=== PATIENT | male | born 1970 | race Caucasian/White ===

== ENCOUNTER 2018-06-03 10:16 | Inpatient (IN) | payer BC ==
[2018-06-03] MEDS ORDERED: Sodium Chloride 0.9% 1000 ML 1,000 ML IV STA ×2 (11:01→11:42)
[2018-06-03] MEDS ORDERED: TORAdol 30 mg Injection IV ONE (11:05)
[2018-06-03] MEDS ORDERED: Sodium Chloride 0.9% 1000 ML 1,000 ML ONE ×2 (11:05→11:46)
[2018-06-03] MEDS ORDERED: PYRIDIUM 200 MG ONE (11:05)
[2018-06-03] MEDS ORDERED: TORAdol 30 mg Injection ONE (11:07)
[2018-06-03] MEDS: PYRIDIUM 200 MG PO SCH ×3 (11:10→20:55)
[2018-06-03 11:15] LABS: Granulocyte Absolute (ANC) 20.26 (1.4-6.9); Hematocrit 45.9 % (42-50); Hemoglobin 16.1 gm/dl (12.5-18.0); Mean Cell Volume 88.4 fl (78-100); Mean Corpuscular Hgb Concent. 35.1 g/dl (32-36); Mean Platelet Volume 9.9 fl (6-9.5); Platelet Count 308 K/mm3 (150-450); Red Blood Count 5.19 M/mm3 (4.1-5.6); White Blood Count 24.1 K/mm3 (4.0-10.5)
--- NOTE | 2018-06-03 11:20 | ERPHSYRPT ---
- History of Present Illness Time Seen by Provider: 06/03/18 10:45 Source: patient Exam Limitations: clinical condition Patient Subjective Stated Complaint: Feels like he is "peeing an elephant" Triage Nursing Assessment: Pt c/o of pain during urination, denies flank or abdomen pain, reports thighs ache and upper arms, no pain with palpatation, tachycardic, states he had a fever yesterday, denies any other medical problems at this time Physician History: PATIENT COMPLAINS OF SEVERE DYSURIA X 2 DAYS ASSOCIATED WITH FREQUENCY, URGENCY OF URINATION. HAS ASSOCIATE FEVER AT HOME, DENIES TESTICLE PAIN, FLANK PAIN, ABDOMINAL PAIN, URETHRAL DISCHARGE OR HEMATURIA. Timing/Duration: day(s) Activites at Onset: none Quality: burning, other (SEVERE BURNING UPON URINATION) Onset Location: urethral Pain Radiation: none Severity of Pain-Max: severe Severity of Pain-Current: severe (ONLY UPON URINATION) Associated Symptoms: fever, dysuria Prior abdominal problems: none Sexual intercourse history: non-contributory Allergies/Adverse Reactions: No Known Drug Allergies Allergy (Verified 06/03/18 10:38) Home Medications: No Reportable Medications [No Reported Medications] 06/03/18 [History] - Past Medical History Pertinent Past Medical History: No - Past Surgical History Past Surgical History: No - Social History Smoking Status: Current some day smoker How long have you smoked: 30 years Exposure to second hand smoke: No Drug Use: none Patient Lives Alone: No - Review of Systems Constitutional: Fever Eyes: No Symptoms Ears, Nose, & Throat: No Symptoms Respiratory: No Symptoms, No Cough, No Dyspnea Cardiac: No Chest Pain, No Edema, No Syncope Abdominal/Gastrointestinal: No Symptoms, No Abdominal Pain, No Nausea, No Vomiting, No Diarrhea Genitourinary Symptoms: Dysuria Musculoskeletal: No Symptoms, No Back Pain, No Neck Pain Skin: No Symptoms, No Rash Neurological: No Dizziness, No Focal Weakness, No Sensory Changes Psychological: No Symptoms Endocrine: No Symptoms All Other Systems: Reviewed and Negative - Nursing Vital Signs Nursing Vital Signs: Initial Vital Signs Temperature 98.1 F 06/03/18 10:25 Pulse Rate 106 H 06/03/18 10:25 Blood Pressure 127/74 06/03/18 10:25 O2 Sat by Pulse Oximetry 98 06/03/18 10:25 Pain Scale Pain Intensity 6 - Physical Exam General Appearance: no apparent distress, alert Eye Exam: PERRL/EOMI Ears, Nose, Throat Exam: pharynx normal, moist mucous membranes Neck Exam: normal inspection, supple Respiratory Exam: normal breath sounds, lungs clear Cardiovascular Exam: regular rate/rhythm, tachycardia, No edema Gastrointestinal/Abdomen Exam: soft, normal bowel sounds (NONTENDER, ), No tenderness Male Genital Exam: normal genitalia (NO TESTICULAR TENDERNESS, NO INGUINAL TENDERNESS), prostate tenderness Back Exam: normal inspection, No CVA tenderness Extremity Exam: normal inspection, normal range of motion, No pedal edema Neurologic Exam: alert, oriented x 3, cooperative, sensation nml, No motor deficits Skin Exam: normal color, warm, dry, No rash SpO2 Interpretation: normal SpO2: 98 Oxygen Delivery: Room Air Ordered Tests: Active Orders 24 hr Category Date Time Status ABDOMEN AND PELVIS W/0 CONTRAS [CT] Stat Exams 06/03/18 11:49 Taken BLOOD CULTURE Stat Lab 06/03/18 10:45 Received BMP Stat Lab 06/03/18 10:45 Completed CBC W DIFF Stat Lab 06/03/18 10:45 Completed CULTURE,URINE Stat Lab 06/03/18 11:04 Received Manual Differential NC Stat Lab 06/03/18 10:45 Completed UA W/RFX UR CULTURE Stat Lab 06/03/18 11:04 Completed Urine Triage Profile Stat Lab 06/03/18 11:04 Completed Wet Prep Stat Lab 06/03/18 11:03 Ordered Medication Summary Generic Name Dose Route Start Last Admin Trade Name Freq PRN Reason Stop Dose Admin Levofloxacin/Dextrose 750 mg in 150 mls @ 100 mls/hr 06/03/18 11:53 06/03/18 12:14 Levofloxacin 750mg/150ml D5w IV 06/03/18 13:22 150 ml/hr STAT STA 150 mls/hr Administration Phenazopyridine HCl 200 mg 06/03/18 13:00 06/03/18 11:10 Pyridium 200 Mg PO 07/03/18 12:59 200 mg QID VALERIA Administration Discontinued Medications Generic Name Dose Route Start Last Admin Trade Name Freq PRN Reason Stop Dose Admin Sodium Chloride 1,000 mls @ 999 mls/hr 06/03/18 11:01 06/03/18 12:14 Sodium Chloride 0.9% 1000 Ml IV 06/03/18 12:01 Infused .Q1H1M STA Infusion Sodium Chloride Confirm 06/03/18 11:05 Sodium Chloride 0.9% 1000 Ml Administered 06/03/18 11:06 Dose 1,000 mls @ ud .ROUTE .STK-MED ONE Sodium Chloride 1,000 mls @ 999 mls/hr 06/03/18 11:42 06/03/18 12:42 Sodium Chloride 0.9% 1000 Ml IV 06/03/18 12:42 Infused .Q1H1M STA Infusion Sodium Chloride Confirm 06/03/18 11:46 Sodium Chloride 0.9% 1000 Ml Administered 06/03/18 11:47 Dose 1,000 mls @ ud .ROUTE .STK-MED ONE Levofloxacin/Dextrose Confirm 06/03/18 11:56 Levofloxacin 750mg/150ml D5w Administered 06/03/18 11:57 Dose 750 mg in 150 mls @ ud IV .STK-MED ONE Ketorolac Tromethamine 30 mg 06/03/18 11:05 06/03/18 11:10 Toradol 30 Mg Injection IV 06/03/18 11:06 30 mg STAT ONE Administration Ketorolac Tromethamine Confirm 06/03/18 11:07 Toradol 30 Mg Injection Administered 06/03/18 11:08 Dose 30 mg .ROUTE .STK-MED ONE Morphine Sulfate 4 mg 06/03/18 11:42 06/03/18 11:50 Morphine Sulfate 4 Mg Inj IV 06/03/18 11:43 4 mg STAT ONE Administration Morphine Sulfate Confirm 06/03/18 11:46 Morphine Sulfate 4 Mg Inj Administered 06/03/18 11:47 Dose 4 mg .ROUTE .STK-MED ONE Ondansetron HCl 4 mg 06/03/18 11:42 06/03/18 11:50 Zofran 4 Mg/2 Ml Vial IV 06/03/18 11:43 4 mg STAT ONE Administration Ondansetron HCl Confirm 06/03/18 11:46 Zofran 4 Mg/2 Ml Vial Administered 06/03/18 11:47 Dose 4 mg .ROUTE .STK-MED ONE Lab/Rad Data: Laboratory Result Diagrams 06/03/18 10:45 06/03/18 10:45 Laboratory Results 06/03/18 06/03/18 06/03/18 Range/Units 11:04 11:04 10:45 WBC (4.0-10.5) K/mm3 RBC (4.1-5.6) M/mm3 Hgb (12.5-18.0) gm/dl Hct (42-50) % MCV (78-100) fl MCH (26-32) pg MCHC (32-36) g/dl RDW (11.5-14.0) % Plt Count (150-450) K/mm3 MPV (6-9.5) fl Absolute Granulocytes (1.4-6.9) Segmented Neutrophils (36.-66.) % Band Neutrophils (0.0-2.0) % Lymphocytes (Manual) (24-44) % Monocytes (Manual) (0.0-12.0) % Platelet Estimate (NORMAL) RBC Morphology Sodium 135 L (137-145) mmol/L Potassium 4.5 (3.5-5.1) mmol/L Chloride 101 (98-107) mmol/L Carbon Dioxide 20 L (22-30) mmol/L Anion Gap 17.6 H (5-15) MEQ/L BUN 11 (9-20) mg/dL Creatinine 0.78 (0.66-1.25) mg/dL Estimated GFR > 60.0 ML/MIN Glucose 104 (74-106) mg/dL Calcium 9.6 (8.4-10.2) mg/dL Urine Color YELLOW (YELLOW) Urine Appearance SLIGHTLY CLOUDY (CLEAR) Urine pH 9.0 (5-6) Ur Specific Nath[place]ie 1.023 (1.005-1.025) Urine Protein 100 (Negative) Urine Ketones MODERATE (NEGATIVE) Urine Blood NEGATIVE (0-5) Jeromy/ul Urine Nitrite NEGATIVE (NEGATIVE) Urine Bilirubin NEGATIVE (NEGATIVE) Urine Urobilinogen 4 (0-1) mg/dL Ur Leukocyte Esterase MODERATE (NEGATIVE) Urine WBC (Auto) >100 (0-5) /HPF Urine RBC (Auto) 26-50 (0-2) /HPF Urine Bacteria (Auto) FEW (NEGATIVE) /HPF Unidentified Crystals 2-5 (NEGATIVE) /HPF Urine Mucus (Auto) SLIGHT (NEGATIVE) /HPF Urine Culture Reflexed YES (NO) Urine Glucose NEGATIVE (NEGATIVE) mg/dL Urine Opiates Level NEGATIVE (NEGATIVE) Ur Methadone NEGATIVE (NEGATIVE) Urine Barbiturates NEGATIVE (NEGATIVE) Ur Phencyclidine (PCP) NEGATIVE (NEGATIVE) Urine Amphetamine NEGATIVE (NEGATIVE) U Benzodiazepine Level NEGATIVE (NEGATIVE) Urine Cocaine NEGATIVE (NEGATIVE) Urine Marijuana (THC) NEGATIVE (NEGATIVE) 06/03/18 Range/Units 10:45 WBC 24.1 H (4.0-10.5) K/mm3 RBC 5.19 (4.1-5.6) M/mm3 Hgb 16.1 (12.5-18.0) gm/dl Hct 45.9 (42-50) % MCV 88.4 (78-100) fl MCH 31.0 (26-32) pg MCHC 35.1 (32-36) g/dl RDW 13.0 (11.5-14.0) % Plt Count 308 (150-450) K/mm3 MPV 9.9 H (6-9.5) fl Absolute Granulocytes 20.26 H (1.4-6.9) Segmented Neutrophils 84 H (36.-66.) % Band Neutrophils 4 H (0.0-2.0) % Lymphocytes (Manual) 8 L (24-44) % Monocytes (Manual) 4 (0.0-12.0) % Platelet Estimate NORMAL (NORMAL) RBC Morphology NORMAL Sodium (137-145) mmol/L Potassium (3.5-5.1) mmol/L Chloride (98-107) mmol/L Carbon Dioxide (22-30) mmol/L Anion Gap (5-15) MEQ/L BUN (9-20) mg/dL Creatinine (0.66-1.25) mg/dL Estimated GFR ML/MIN Glucose (74-106) mg/dL Calcium (8.4-10.2) mg/dL Urine Color (YELLOW) Urine Appearance (CLEAR) Urine pH (5-6) Ur Specific [place]ath[place]ie (1.005-1.025) Urine Protein (Negative) Urine Ketones (NEGATIVE) Urine Blood (0-5) Jeromy/ul Urine Nitrite (NEGATIVE) Urine Bilirubin (NEGATIVE) Urine Urobilinogen (0-1) mg/dL Ur Leukocyte Esterase (NEGATIVE) Urine WBC (Auto) (0-5) /HPF Urine RBC (Auto) (0-2) /HPF Urine Bacteria (Auto) (NEGATIVE) /HPF Unidentified Crystals (NEGATIVE) /HPF Urine Mucus (Auto) (NEGATIVE) /HPF Urine Culture Reflexed (NO) Urine Glucose (NEGATIVE) mg/dL Urine Opiates Level (NEGATIVE) Ur Methadone (NEGATIVE) Urine Barbiturates (NEGATIVE) Ur Phencyclidine (PCP) (NEGATIVE) Urine Amphetamine (NEGATIVE) U Benzodiazepine Level (NEGATIVE) Urine Cocaine (NEGATIVE) Urine Marijuana (THC) (NEGATIVE) - Progress Progress Note: 06/03/18 11:27 IV NORMAL SALINE 1 LITER BOLUS, PRYIDIUM 200MG ORALLY, TORADOL 30MG IV AFTER 2 SETS OF BLOOD CULTURES, LEVAQUIN 500MG IVPB Discussed with DrBaljeet: Magan Will see patient in: hospital (observation) (DISCUSSED WITH DR FERNANDEZ AT 1350 FOR OBSERVATION) - Departure Time of Disposition: 13:00 Departure Disposition: Observation Clinical Impression: ACUTE PROSTATITIS, URINARY TRACT INFECTION Condition: Stable Critical Care Time: No
[2018-06-03 11:24] LABS: Appearance SLIGHTLY CLOUDY (CLEAR); Bilirubin NEGATIVE (NEGATIVE); Blood NEGATIVE Ery/ul (0-5); Glucose NEGATIVE (NEGATIVE); Ketones MODERATE (NEGATIVE); Leukocyte Esterase MODERATE (NEGATIVE); Nitrite NEGATIVE (NEGATIVE); Protein,Urine Dip 100 (Negative); Specific Gravity 1.023 (1.005-1.025); Urobilinogen 4 mg/dL (0-1)
[2018-06-03 11:26] LABS: ANION GAP 17.6 MEQ/L (5-15); BLOOD UREA NITROGEN 11 mg/dL (9-20); CHLORIDE 101 mmol/L (98-107); Calcium 9.6 mg/dL (8.4-10.2); Carbon Dioxide 20 mmol/L (22-30); Creatinine 1 0.78 mg/dL (0.66-1.25); Glucose 104 mg/dL (74-106); Potassium 4.5 mmol/L (3.5-5.1); SODIUM 135 mmol/L (137-145)
[2018-06-03 11:38] LABS: Amphetamine,Urine NEGATIVE (NEGATIVE); Barbiturate,Urine NEGATIVE (NEGATIVE); Benzodiazepine,Urine NEGATIVE (NEGATIVE); Cocaine,Urine NEGATIVE (NEGATIVE); Methadone,Urine NEGATIVE (NEGATIVE); Opiate,Urine NEGATIVE (NEGATIVE); PCP,Urine NEGATIVE (NEGATIVE); THC,Urine NEGATIVE (NEGATIVE)
[2018-06-03] MEDS ORDERED: MORPHINE SULFATE 4 MG INJ IV ONE (11:42)
[2018-06-03] MEDS ORDERED: Zofran 4 MG/2 ML VIAL IV ONE (11:42)
[2018-06-03] MEDS ORDERED: Zofran 4 MG/2 ML VIAL ONE (11:46)
[2018-06-03] MEDS ORDERED: MORPHINE SULFATE 4 MG INJ ONE (11:46)
[2018-06-03] MEDS ORDERED: LEVOFLOXACIN 750MG/150ML D5W 750 MG/150 ML BAG IV STA (11:53)
[2018-06-03] MEDS ORDERED: LEVOFLOXACIN 750MG/150ML D5W 750 MG/150 ML BAG IV ONE (11:56)
[2018-06-03 12:05] LABS: BAND 4 % (0.0-2.0); Lymphocytes 8 % (24-44); Monocyte 4 % (0.0-12.0); Neutrophils 84 % (36.-66.); Total Cells Counted 100
[2018-06-03 12:06] LABS: Platelet Estimate NORMAL (NORMAL)
[2018-06-03] MEDS ORDERED: Zofran 4 MG/2 ML VIAL IV PRN (12:57)
[2018-06-03] MEDS ORDERED: MORPHINE SULFATE 4 MG INJ IV PRN (12:57)
[2018-06-03 13:17] LABS: Bacteria Few; Clue Cells None Seen; Trichomonas None Seen
[2018-06-03 13:18] LABS: Red Blood Cells None Seen; White Blood Cells None Seen
[2018-06-03] MEDS: Sodium Chloride 0.9% 1000 ML 1,000 ML IV SCH ×2 (14:05→23:58)
--- NOTE | 2018-06-03 15:45 | XRAY ---
Indication: Painful urination. Little urine output. Multiple contiguous axial images obtained through the abdomen and pelvis without contrast as ordered. Comparison: None Lung bases are clear. Heart is not enlarged. Noncontrasted stomach and bowel loops appear nonobstructed. Several small bowel loops are mildly fluid distended with some fluid leveling, ileus versus enteritis. Normal appendix. Mild scattered descending and sigmoid diverticulosis without diverticulitis. No free fluid/air. Remaining liver, gallbladder, pancreas, spleen, adrenal glands, kidneys, ureters, and bladder appear unremarkable for noncontrast exam. Minimal aortic calcifications without AAA. Osseous structures intact with mild multilevel degenerative changes. No ventral or inguinal hernia. Impression: 1. Mild fluid distended small bowel loops with fluid leveling. Rule out ileus versus enteritis. 2. Colonic diverticulosis without diverticulitis. 3. Remaining CT abdomen/pelvis without contrast exam is negative. Comment: Preliminary interpretation was made by [facility]. No discrepancy. CTDI 16.88
[2018-06-03] MEDS: TYLENOL 325 MG PO PRN ×2 (15:46→23:04)
[2018-06-03] MEDS ORDERED: DILAUDID 2 MG INJECTION ONE ×2 (16:45→20:51)
[2018-06-03] MEDS: Hydromorphone 1 mg/ml Ampule IV PRN ×2 (16:48→20:56)
[2018-06-04] MEDS ORDERED: BENADRYL 25 MG CAPSULE PO ONE (01:17)
--- NOTE | 2018-06-04 08:17 | PCM.HP ---
History of Present Illness - Chief Complaint Chief Complaint: Acute Prostatitis, Urinary Tract Infection History of Present Illness: is a 48 year old male who presented to the ER last night with complaints of dysuria and fever. He developed penile pain with urination that has worsened over the last 2 days, he had fever the day before arrival. no nausea, vomiting, diarrhea or constipation. - Review of Systems Constitutional: Fever Respiratory: No Cough, No Short Of Breath Cardiac: No Chest Pain, No Edema, No Syncope Abdominal/Gastrointestinal: No Nausea, No Vomiting, No Diarrhea Genitourinary Symptoms: Dysuria Skin: No Rash Neurological: No Dizziness, No Focal Weakness, No Sensory Changes All Other Systems: Reviewed and Negative Medications & Allergies Home Medications: Home Medication List No Reportable Medications [No Reported Medications] 06/03/18 [History Confirmed 06/03/18] Allergies/Adverse Reactions: Allergies Allergy/AdvReac Type Severity Reaction Status Date / Time No Known Drug Allergies Allergy Verified 06/03/18 10:38 - Past Medical History Past Medical History: No Neurological History: No Pertinent History ENT History: No Pertinent History Cardiac History: No Pertinent History Respiratory History: No Pertinent History Endocrine Medical History: No Pertinent History Musculoskelatal History: No Pertinent History GI Medical History: No Pertinent History History: No Pertinent History Pyscho-Social History: No Pertinent History Male Reproductive Disorders: No Pertinent History - Past Surgical History Past Surgical History: No Neuro Surgical History: No Pertinent History Cardiac History: No Pertinent History Respiratory Surgery: No Pertinent History GI Surgical History: No Pertinent History Genitourinary Surgical Hx: No Pertinent History Musculskeletal Surgical Hx: No Pertinent History Male Surgical History: No Pertinent History - Social History Smoking Status: Current every day smoker How long have you smoked: 30 years Exposure to second hand smoke: No Alcohol: Occasionally Drug Use: none - Physical Exam Vital Signs: Vital Signs - 24 hr Temp Pulse Resp BP Pulse Ox 06/04/18 07:50 97.8 F 77 16 115/69 92 L 06/04/18 04:18 98.4 F 70 18 114/59 96 06/04/18 04:00 97 06/03/18 23:36 98 06/03/18 23:32 99.8 F 100 H 16 129/69 98 06/03/18 19:45 98.7 F 89 18 112/66 96 06/03/18 16:55 99.3 F 102 H 17 141/84 97 06/03/18 14:24 98.9 F 89 18 127/72 98 06/03/18 13:11 98.1 F 94 H 110/70 95 06/03/18 13:02 98 06/03/18 12:49 98.1 F 90 18 136/80 94 L 06/03/18 11:28 98.0 F 98 H 16 140/76 98 06/03/18 10:25 98.1 F 106 H 127/74 98 General Appearance: no apparent distress, alert Eye Exam: PERRL/EOMI, eyes nml inspection Ears, Nose, Throat Exam: normal ENT inspection, TMs normal, pharynx normal, moist mucous membranes Respiratory Exam: normal breath sounds, lungs clear, No respiratory distress Cardiovascular Exam: regular rate/rhythm, normal heart sounds, normal peripheral pulses Gastrointestinal/Abdomen Exam: soft, normal bowel sounds, No tenderness, No mass Extremity Exam: normal inspection, normal range of motion, pelvis stable Results - Labs Lab/Micro Results: Lab Results-Last 24 Hours 06/03/18 06/03/18 06/03/18 Range/Units 10:45 10:45 11:04 WBC 24.1 H (4.0-10.5) K/mm3 RBC 5.19 (4.1-5.6) M/mm3 Hgb 16.1 (12.5-18.0) gm/dl Hct 45.9 (42-50) % MCV 88.4 (78-100) fl MCH 31.0 (26-32) pg MCHC 35.1 (32-36) g/dl RDW 13.0 (11.5-14.0) % Plt Count 308 (150-450) K/mm3 MPV 9.9 H (6-9.5) fl Absolute Granulocytes 20.26 H (1.4-6.9) Segmented Neutrophils 84 H (36.-66.) % Band Neutrophils 4 H (0.0-2.0) % Lymphocytes (Manual) 8 L (24-44) % Monocytes (Manual) 4 (0.0-12.0) % Platelet Estimate NORMAL (NORMAL) RBC Morphology NORMAL Sodium 135 L (137-145) mmol/L Potassium 4.5 (3.5-5.1) mmol/L Chloride 101 (98-107) mmol/L Carbon Dioxide 20 L (22-30) mmol/L Anion Gap 17.6 H (5-15) MEQ/L BUN 11 (9-20) mg/dL Creatinine 0.78 (0.66-1.25) mg/dL Estimated GFR > 60.0 ML/MIN Glucose 104 (74-106) mg/dL Calcium 9.6 (8.4-10.2) mg/dL Urine Color YELLOW (YELLOW) Urine Appearance SLIGHTLY CLOUDY (CLEAR) Urine pH 9.0 (5-6) Ur Specific [place] 1.023 (1.005-1.025) Urine Protein 100 (Negative) Urine Ketones MODERATE (NEGATIVE) Urine Blood NEGATIVE (0-5) Jeromy/ul Urine Nitrite NEGATIVE (NEGATIVE) Urine Bilirubin NEGATIVE (NEGATIVE) Urine Urobilinogen 4 (0-1) mg/dL Ur Leukocyte Esterase MODERATE (NEGATIVE) Urine WBC (Auto) >100 (0-5) /HPF Urine RBC (Auto) 26-50 (0-2) /HPF Urine Bacteria (Auto) FEW (NEGATIVE) /HPF Unidentified Crystals 2-5 (NEGATIVE) /HPF Urine Mucus (Auto) SLIGHT (NEGATIVE) /HPF Urine Culture Reflexed YES (NO) Urine Glucose NEGATIVE (NEGATIVE) mg/dL WBC (Wet Prep) RBC (Wet Prep) Epi Cells (Wet Prep) Bacteria (Wet Prep) Clue Cells (Wet Prep) Trichomonas (Wet Prep) Budding Yeast (Wet Prp) Urine Opiates Level (NEGATIVE) Ur Methadone (NEGATIVE) Urine Barbiturates (NEGATIVE) Ur Phencyclidine (PCP) (NEGATIVE) Urine Amphetamine (NEGATIVE) U Benzodiazepine Level (NEGATIVE) Urine Cocaine (NEGATIVE) Urine Marijuana (THC) (NEGATIVE) Chlamydia DNA (PCR) N.gonorrhoeae DNA Probe 06/03/18 06/03/18 06/03/18 Range/Units 11:04 12:10 13:00 WBC (4.0-10.5) K/mm3 RBC (4.1-5.6) M/mm3 Hgb (12.5-18.0) gm/dl Hct (42-50) % MCV (78-100) fl MCH (26-32) pg MCHC (32-36) g/dl RDW (11.5-14.0) % Plt Count (150-450) K/mm3 MPV (6-9.5) fl Absolute Granulocytes (1.4-6.9) Segmented Neutrophils (36.-66.) % Band Neutrophils (0.0-2.0) % Lymphocytes (Manual) (24-44) % Monocytes (Manual) (0.0-12.0) % Platelet Estimate (NORMAL) RBC Morphology Sodium (137-145) mmol/L Potassium (3.5-5.1) mmol/L Chloride (98-107) mmol/L Carbon Dioxide (22-30) mmol/L Anion Gap (5-15) MEQ/L BUN (9-20) mg/dL Creatinine (0.66-1.25) mg/dL Estimated GFR ML/MIN Glucose (74-106) mg/dL Calcium (8.4-10.2) mg/dL Urine Color (YELLOW) Urine Appearance (CLEAR) Urine pH (5-6) Ur Specific [place] (1.005-1.025) Urine Protein (Negative) Urine Ketones (NEGATIVE) Urine Blood (0-5) Jeromy/ul Urine Nitrite (NEGATIVE) Urine Bilirubin (NEGATIVE) Urine Urobilinogen (0-1) mg/dL Ur Leukocyte Esterase (NEGATIVE) Urine WBC (Auto) (0-5) /HPF Urine RBC (Auto) (0-2) /HPF Urine Bacteria (Auto) (NEGATIVE) /HPF Unidentified Crystals (NEGATIVE) /HPF Urine Mucus (Auto) (NEGATIVE) /HPF Urine Culture Reflexed (NO) Urine Glucose (NEGATIVE) mg/dL WBC (Wet Prep) None Seen RBC (Wet Prep) None Seen Epi Cells (Wet Prep) Rare Bacteria (Wet Prep) Few Clue Cells (Wet Prep) None Seen Trichomonas (Wet Prep) None Seen Budding Yeast (Wet Prp) None Seen Urine Opiates Level NEGATIVE (NEGATIVE) Ur Methadone NEGATIVE (NEGATIVE) Urine Barbiturates NEGATIVE (NEGATIVE) Ur Phencyclidine (PCP) NEGATIVE (NEGATIVE) Urine Amphetamine NEGATIVE (NEGATIVE) U Benzodiazepine Level NEGATIVE (NEGATIVE) Urine Cocaine NEGATIVE (NEGATIVE) Urine Marijuana (THC) NEGATIVE (NEGATIVE) Chlamydia DNA (PCR) NEGATIVE N.gonorrhoeae DNA Probe NEGATIVE Microbiology 06/03/18 11:25 Blood Culture Gram Stain - Final Blood - Radiology Impressions Radiology Exams & Impressions: Radiology Procedures Category Date Time Status ABDOMEN AND PELVIS W/0 CONTRAS [CT] Stat Exams 06/03/18 11:49 Completed Assessment/Plan (1) Bacteremia Current Visit: Yes Status: Acute Assessment & Plan: hemodynamically stable and afebrile thus far, on levaquin at this time. gnr Code(s): R78.81 - BACTEREMIA (2) Acute pyelonephritis Current Visit: Yes Status: Acute Code(s): N10 - ACUTE PYELONEPHRITIS (3) Prostatitis, acute Current Visit: Yes Status: Acute Code(s): N41.0 - ACUTE PROSTATITIS
[2018-06-04] MEDS: Sodium Chloride 0.9% 1000 ML 1,000 ML IV SCH ×2 (10:04→22:48)
[2018-06-04] MEDS: LEVOFLOXACIN 750MG/150ML D5W 750 MG/150 ML BAG IV SCH (10:05)
[2018-06-04] MEDS: PYRIDIUM 200 MG PO SCH ×4 (10:05→21:21)
[2018-06-04] MEDS: DILAUDID 1 MG/1ML PCA IV PRN ×2 (12:00→18:05)
[2018-06-04] MEDS: BENADRYL 25 MG CAPSULE PO PRN ×2 (16:51→21:21)
[2018-06-05 05:41] LABS: BASOPHIL % 0.3 % (0.0-0.4); Basophil (Absolute #) 0.03 (0-0.4); Eosinophil % 2.5 % (0.00-5.0); Eosinophil (Absolute #) 0.27 (0-0.5); Granulocyte Absolute (ANC) 7.59 (1.4-6.9); Granulocytes % 70.3 % (36.0-66.0); Hematocrit 38.8 % (42-50); Hemoglobin 12.9 gm/dl (12.5-18.0); Lymphocyte (Absolute #) 1.55 (1.0-4.6); Lymphocytes % 14.4 % (24.0-44.0); Mean Cell Volume 91.7 fl (78-100); Mean Corpuscular Hemoglobin 30.5 pg (26-32); Mean Corpuscular Hgb Concent. 33.2 g/dl (32-36); Mean Platelet Volume 9.2 fl (6-9.5); Monocyte (Absolute #) 1.35 (0.0-1.3); Monocytes % 12.5 % (0.0-12.0); Platelet Count 287 K/mm3 (150-450); Red Blood Count 4.23 M/mm3 (4.1-5.6); Red Cell Distribution Width 13.3 % (11.5-14.0); White Blood Count 10.8 K/mm3 (4.0-10.5)
[2018-06-05 06:15] LABS: ALBUMIN 3.4 g/dL (3.5-5.0); ALKALINE PHOSPHATASE 206 U/L (38-126); ANION GAP 10.1 MEQ/L (5-15); BLOOD UREA NITROGEN 8 mg/dL (9-20); CHLORIDE 102 mmol/L (98-107); Calcium 8.5 mg/dL (8.4-10.2); Carbon Dioxide 29 mmol/L (22-30); Creatinine 1 0.71 mg/dL (0.66-1.25); Glucose 91 mg/dL (74-106); Potassium 3.7 mmol/L (3.5-5.1); SGOT/AST 50 U/L (17-59); SGPT/ALT 46 U/L (0-50); SODIUM 137 mmol/L (137-145); Total Protein 6.6 g/dL (6.3-8.2)
[2018-06-05] MEDS: Sodium Chloride 0.9% 1000 ML 1,000 ML IV SCH ×2 (08:45→19:31)
--- NOTE | 2018-06-05 09:21 | PCM.NOTE ---
Date and Time: 06/05/18918 Subjective Assessment: Pt is urinating better than before, but still has 9/10 dysuria. Azucena po well. - Review of Systems Constitutional: No Fever (Tmax 99.3) Genitourinary Symptoms: Dysuria Objective Exam General Appearance: no apparent distress, alert (standing up) Skin Exam: normal color, warm, dry, No rash Neck Exam: normal inspection Respiratory Exam: normal breath sounds, lungs clear, No crackles/rales, No rhonchi, No wheezing Cardiovascular Exam: regular rate/rhythm, normal heart sounds, No murmur Gastrointestinal/Abdomen Exam: soft, normal bowel sounds, No tenderness, No distention Extremity Exam: normal inspection Back Exam: normal inspection, No CVA tenderness, No rash OBJECTIVE DATA Vital Signs: Vital Signs - 24 hr Temp Pulse Resp BP Pulse Ox 06/05/18 07:58 96 06/05/18 07:22 97.7 F 73 20 112/56 96 06/05/18 04:00 98.9 F 70 16 101/56 94 L 06/05/18 00:00 99.3 F 85 18 118/61 94 L 06/04/18 20:00 98.4 F 72 16 112/60 95 06/04/18 19:48 95 06/04/18 18:05 94 L 06/04/18 16:00 98.5 F 81 18 120/73 94 L 06/04/18 12:00 96 06/04/18 11:49 97.9 F 71 17 106/76 96 Pain Assessment - Last Documented Pain Intensity 8 Pain Scale Used 0-10 Pain Scale Intake and Output: Intake & Output 06/02/18 06/03/18 06/04/18 06/05/18 11:59 11:59 11:59 11:59 Intake Total 2883 1369 Output Total 1655 3725 Balance 1228 -2356 Weight 85.275 kg 83.5 kg Lab Results: Lab Results-Last 24 Hours 06/05/18 06/05/18 Range/Units 05:33 05:33 WBC 10.8 H (4.0-10.5) K/mm3 RBC 4.23 (4.1-5.6) M/mm3 Hgb 12.9 (12.5-18.0) gm/dl Hct 38.8 L (42-50) % MCV 91.7 (78-100) fl MCH 30.5 (26-32) pg MCHC 33.2 (32-36) g/dl RDW 13.3 (11.5-14.0) % Plt Count 287 (150-450) K/mm3 MPV 9.2 (6-9.5) fl Gran % 70.3 H (36.0-66.0) % Eos # (Auto) 0.27 (0-0.5) Absolute Lymphs (auto) 1.55 (1.0-4.6) Absolute Monos (auto) 1.35 H (0.0-1.3) Lymphocytes % 14.4 L (24.0-44.0) % Monocytes % 12.5 H (0.0-12.0) % Eosinophils % 2.5 (0.00-5.0) % Basophils % 0.3 (0.0-0.4) % Absolute Granulocytes 7.59 H (1.4-6.9) Basophils # 0.03 (0-0.4) Sodium 137 (137-145) mmol/L Potassium 3.7 (3.5-5.1) mmol/L Chloride 102 (98-107) mmol/L Carbon Dioxide 29 (22-30) mmol/L Anion Gap 10.1 (5-15) MEQ/L BUN 8 L (9-20) mg/dL Creatinine 0.71 (0.66-1.25) mg/dL Estimated GFR > 60.0 ML/MIN Glucose 91 (74-106) mg/dL Calcium 8.5 (8.4-10.2) mg/dL Total Bilirubin 0.40 (0.2-1.3) mg/dL AST 50 (17-59) U/L ALT 46 (0-50) U/L Alkaline Phosphatase 206 H (38-126) U/L Serum Total Protein 6.6 (6.3-8.2) g/dL Albumin 3.4 L (3.5-5.0) g/dL Radiology Exams: Radiology Procedures Category Date Time Status ABDOMEN AND PELVIS W/0 CONTRAS [CT] Stat Exams 06/03/18 11:49 Completed Assessment/Plan (1) Acute pyelonephritis Current Visit: Yes Status: Acute Onset Date: ~06/03/18 Assessment & Plan: Culture result pos for E. coli, susceptible to levaquin. Pt's WBC down today from 24.1 to 10.8. He is still symptomatic; I advised he should stay at least another day (may need 2 days) on the IV levaquin. Pt agrees. Code(s): N10 - ACUTE PYELONEPHRITIS (2) Bacteremia Current Visit: Yes Status: Acute Onset Date: ~06/03/18 Code(s): R78.81 - BACTEREMIA (3) Elevated white blood cell count Current Visit: Yes Status: Acute Onset Date: ~06/03/18 Code(s): D72.829 - ELEVATED WHITE BLOOD CELL COUNT, UNSPECIFIED (4) Prostatitis, acute Current Visit: Yes Status: Acute Onset Date: ~06/03/18 Code(s): N41.0 - ACUTE PROSTATITIS
[2018-06-05] MEDS: PYRIDIUM 200 MG PO SCH ×4 (09:57→22:25)
[2018-06-05] MEDS: LEVOFLOXACIN 750MG/150ML D5W 750 MG/150 ML BAG IV SCH (09:58)
[2018-06-05] MEDS: BENADRYL 25 MG CAPSULE PO PRN (14:20)
[2018-06-06] MEDS: BENADRYL 25 MG CAPSULE PO PRN (01:14)
[2018-06-06] MEDS: Sodium Chloride 0.9% 1000 ML 1,000 ML IV SCH (04:08)
[2018-06-06 07:29] VITALS: O2SAT 94
--- NOTE | 2018-06-06 08:39 | PCM.DS ---
Discharge Summary Date of Admission: 06/04/18 09:35 Admitting Physician: LISBET FERNANDEZ Primary Care Provider: NO FAMILY DOCTOR Allergies Allergies No Known Drug Allergies Allergy (Verified 06/03/18 10:38) Hospital Summary - Hospital Course Hospital Course: patient was admitted with severe flank pain and dysuria, fever and feeling poorly. found to have e coli in urine and blood cultures - Vitals & Intake/Output Vital Signs: Vital Signs Temperature 98.4 F 06/06/18 07:27 Pulse Rate 78 06/06/18 07:27 Respiratory Rate 18 06/06/18 07:27 Blood Pressure 121/73 06/06/18 07:27 O2 Sat by Pulse Oximetry 94 L 06/06/18 07:27 Intake & Output: Intake & Output 06/03/18 06/04/18 06/05/18 06/06/18 11:59 11:59 11:59 11:59 Intake Total 2883 1489 3942 Output Total 1655 4575 2900 Balance 1228 -3086 1042 Weight 85.275 kg 83.5 kg - Lab Result Diagrams: 06/05/18 05:33 06/05/18 05:33 Micro Results-Entire Visit: Microbiology 06/03/18 11:25 Blood Culture Gram Stain - Final Blood Blood Culture - Final Escherichia Coli 06/03/18 10:45 Blood Culture - Preliminary Blood NO GROWTH TO DATE 06/03/18 11:04 Urine Culture - Final Urine, Void Escherichia Coli - Procedures and Test Procedures and Tests throughout Hospitalization: Therapy Orders & Screens 06/03/18 14:48 Smoking Cessation Education ONCE Comment: Diagnosis: Acute Prostatitis, Urinary Tract Infection Smoking Status: Current every day smoker How long have you smoked: 30 years Have you smoked in the past 12 months: Yes Do you dip or chew tobacco: Yes Discharge Exam General Appearance: no apparent distress, alert Skin Exam: normal color, warm, dry Eye Exam: PERRL, EOMI, eyes nml inspection Respiratory Exam: normal breath sounds, lungs clear, No respiratory distress Cardiovascular Exam: regular rate/rhythm, normal heart sounds Gastrointestinal/Abdomen Exam: soft, No tenderness, No mass Extremity Exam: normal inspection, normal range of motion Final Diagnosis/Problem List - Final Discharge Diagnosis/Problem (1) Bacteremia Current Visit: Yes Status: Acute Onset Date: ~06/03/18 (2) Acute pyelonephritis Current Visit: Yes Status: Acute Onset Date: ~06/03/18 (3) Prostatitis, acute Current Visit: Yes Status: Acute Onset Date: ~06/03/18 - Discharge Disposition: Home, Self-Care Condition: Stable Prescriptions: New Levofloxacin [Levofloxacin 500 MG Tablet] 500 mg PO DAILY #10 tablet Hydrocodone Bit/Acetaminophen [[place] 5-325 Tablet] 1 each PO Q4-6HPRN PRN # 28 tablet MDD 4 PRN Reason: Pain Follow up with: LISBET FERNANDEZ MD [ACTIVE STAFF] - 1 month
[2018-06-06] MEDS: LEVOFLOXACIN 750MG/150ML D5W 750 MG/150 ML BAG IV SCH (09:58)
[2018-06-06] MEDS: PYRIDIUM 200 MG PO SCH (09:58)
[2018-06-06 12:43] VITALS: BP 125/73; PULSE 75
== END 2018-06-06 12:40 | disposition home or self-care (01) | DRG 872 ==
LOC: ED 10:16 → MED SURG 13:52 → OBSVTOIN 06-04 09:35
PROVIDERS: ADMIT Family Medicine; ATTEND Family Medicine
DX: R78.81 Bacteremia (principal); N10 Acute pyelonephritis; N41.0 Acute prostatitis; B96.20 Unspecified Escherichia coli [E. coli] as the cause of diseases classified elsewhere; D72.829 Elevated white blood cell count, unspecified
CPT/HCPCS: 36415; 74176; 80048; 80053; 80307; 81001; 85025; 87040; 87077; 87086; 87186; 87210; 87490; 87590; 96360; 96361; 96374; 96375; 99285; G0378; J1170; J1885; J1956; J2270; J2405; A9270-GY

== ENCOUNTER 2024-08-04 13:32 | Emergency (ER) | payer BC ==
--- NOTE | 2024-08-04 14:28 | ERPHSYRPT ---
- History of Present Illness Time Seen by Provider: 08/04/24 14:28 Source: patient Exam Limitations: no limitations Physician History: The patient, with COPD, presents with worsening headache, cough, and body aches. Since August 01, 2024, they have experienced worsening headache, cough, and body aches. The cough is severe enough to cause back pain and is associated with back and leg pain. Additional symptoms include cold chills, leg and arm aches, diarrhea, and dry vomiting. No trouble breathing or productive cough. They have checked for fever over the past two weeks but do not specify the results. They have been using Tylenol and ibuprofen for discomfort. They mention taking a cholesterol medication, possibly atorvastatin or Lipitor, but are unsure of the exact name. They also take vitamin D3 due to a previously identified deficiency. They smoke but have not smoked since becoming ill. No chest pain, belly pain, or swelling. Timing/Duration: day(s) (3) Cough Quality/Degree: severe, productive cough Possible Cause: no prior episodes Modifying Factors: Improves With: nothing. Worsens With: coughing, deep breath, exertion Associated Symptoms: fever, chills, chest pain/soreness, cough, muscle aches, shortness of breath Allergies/Adverse Reactions: No Known Drug Allergies Allergy (Verified 08/04/24 14:38) Home Medications: Bupropion HCl 150 mg Sr [Wellbutrin SR 150 MG] 150 mg PO DAILY 08/04/24 [History] Ezetimibe 10 mg [Zetia 10 MG] 10 mg PO DAILY 08/04/24 [History] - Review of Systems All Other Systems: Reviewed and Negative - Past Medical History Pertinent Past Medical History: No Neurological History: No Pertinent History ENT History: No Pertinent History Cardiac History: No Pertinent History Respiratory History: No Pertinent History Endocrine Medical History: No Pertinent History Musculoskeletal History: No Pertinent History GI Medical History: No Pertinent History History: No Pertinent History Psycho-Social History: No Pertinent History Male Reproductive Disorders: No Pertinent History - Past Surgical History Past Surgical History: No Neuro Surgical History: No Pertinent History Cardiac: No Pertinent History Respiratory: No Pertinent History Gastrointestinal: No Pertinent History Genitourinary: No Pertinent History Musculoskeletal: No Pertinent History Male Surgical History: No Pertinent History - Social History Smoking Status: Current every day smoker How long have you smoked: 30 years Exposure to second hand smoke: No Drug Use: none Patient Lives Alone: No - Nursing Vital Signs Nursing Vital Signs: Initial Vital Signs Temperature 99.8 F 08/04/24 14:20 Pulse Rate 109 H 08/04/24 14:20 Respiratory Rate 19 08/04/24 14:20 O2 Sat by Pulse Oximetry 97 08/04/24 14:20 Pain Scale Pain Intensity 0 - Physical Exam SpO2 Interpretation: normal O2 Delivery: Room Air Comments: General: No distress. afebrile. Awake and conversant. Eyes: Normal conjunctiva, anicteric. Round symmetric pupils. ENT: Normal external ear, no tragal TTP, no mastoid TTP, Ear canal clear, Tympanic membranes pearly najera and + light reflex, no sinus tenderness, mild pharyngeal erythema, - exudates. Neck: Neck is supple. + anterior lymphadenopathy. CV: Regular rate, Regular rhythm, no murmur. No peripheral edema Respiratory: Respirations are non-labored. + ronchi. Abdomen: Soft, + BS, no TTP, no CVA TTP Skin: Warm. No rashes. - Course Nursing assessment & vital signs reviewed: Yes - Radiology Exams Chest X-ray Interpretation: Interpreted by me, Pneumonia (bilateral ground glass) Ordered Tests: Active Orders 24 hr Category Date Time Status CHEST 1 VIEW (PORTABLE) Stat Exams 08/04/24 14:22 Completed CBC W DIFF Stat Lab 08/04/24 15:10 Completed CMP Stat Lab 08/04/24 15:10 Completed Respiratory Therapy Assessment DAILY RT 08/04/24 14:59 Completed Medication Summary Discontinued Medications Generic Name Dose Route Start Last Admin Trade Name Kenneth PRN Reason Stop Dose Admin Albuterol/Ipratropium 3 ml 08/04/24 14:26 08/04/24 14:56 Ipratropium/Albuterol Sulfate 3 Ml Ampul.Neb IH 08/04/24 14:27 3 ml STAT ONE Administration Albuterol/Ipratropium Confirm 08/04/24 14:35 Ipratropium/Albuterol Sulfate 3 Ml Ampul.Neb Administered 08/04/24 14:36 Dose 3 ml IH .STK-MED ONE Azithromycin 500 mg 08/05/24 15:19 08/04/24 15:27 Azithromycin 250 Mg Tablet PO 08/05/24 15:20 500 mg STAT ONE Administration Azithromycin Confirm 08/04/24 15:26 Azithromycin 250 Mg Tablet Administered 08/04/24 15:27 Dose 500 mg .ROUTE .STK-MED ONE Sodium Chloride 1,000 mls @ 999 mls/hr 08/04/24 15:18 08/04/24 15:27 Sodium Chloride 0.9% 1000 Ml IV 08/04/24 16:18 999 mls/hr .Q1H1M STA Administration Sodium Chloride Confirm 08/04/24 15:26 Sodium Chloride 0.9% 1000 Ml Administered 08/04/24 15:27 Dose 1,000 mls @ ud .ROUTE .STK-MED ONE Ondansetron HCl 4 mg 08/04/24 14:36 08/04/24 14:37 Zofran 4 Mg/Udtablet Orally Disintegrating PO 09/03/24 14:35 4 mg Q4H PRN PRN Administration NAUSEA/VOMITING Ondansetron HCl Confirm 08/04/24 14:37 Zofran 4 Mg/Udtablet Orally Disintegrating Administered 08/04/24 14:38 Dose 4 mg .ROUTE .STK-MED ONE Potassium Chloride 40 meq 08/04/24 15:43 08/04/24 15:52 Potassium Chloride Tab 10 Meq Tab PO 08/04/24 15:44 40 meq STAT ONE Administration Potassium Chloride Confirm 08/04/24 15:51 Potassium Chloride Tab 10 Meq Tab Administered 08/04/24 15:52 Dose 40 meq .ROUTE .STK-MED ONE Prednisone 60 mg 08/04/24 14:26 08/04/24 14:35 Prednisone 20 Mg Tablet PO 08/04/24 14:27 60 mg STAT ONE Administration Prednisone Confirm 08/04/24 14:34 Prednisone 20 Mg Tablet Administered 08/04/24 14:35 Dose 60 mg .ROUTE .STK-MED ONE Lab/Rad Data: Laboratory Result Diagrams 08/04/24 15:10 08/04/24 15:10 Laboratory Results 08/04/24 08/04/24 08/04/24 Range/Units 15:10 15:10 14:30 WBC 16.0 H (4.23-9.07) x10^3/uL RBC 5.71 (4.63-6.08) x10^6/uL Hgb 17.8 H (13.7-17.5) g/dL Hct 48.2 (40.1-51.0) % MCV 84.4 (79.0-92.2) fL MCH 31.2 (25.7-32.2) pg MCHC 36.9 H (32.3-36.5) g/dL RDW 12.8 (11.6-14.4) % Plt Count 238 (163-337) x10^3/uL MPV 9.6 (9.4-12.4) fL Gran % 69.8 H (34.0-67.9) % Immature Gran % (Auto) 0.4 (0.001-0.429) % Nucleat RBC Rel Count 0.0 (0.00-0.2) % Eos # (Auto) 0 L (0.04-0.54) x10^3/uL Immature Gran # (Auto) 0.06 H (0.001-0.031) x10^3u/L Absolute Lymphs (auto) 2.09 (1.32-3.57) x10^3/uL Absolute Monos (auto) 2.62 H (0.30-0.82) x10^3/uL Absolute Nucleated RBC 0.00 (0.00-0.012) x10^3u/L Lymphocytes % 13.1 L (21.8-53.1) % Monocytes % 16.4 H (5.3-12.2) % Eosinophils % 0.0 L (0.8-7.0) % Basophils % 0.3 (0.2-1.2) % Absolute Granulocytes 11.19 H (1.78-5.38) x10^3/uL Basophils # 0.04 (0.01-0.08) x10^3/uL Sodium 134 L (135-145) mmol/L Potassium 3.1 L (3.5-5.1) mmol/L Chloride 102 (98-107) mmol/L Carbon Dioxide 18 L (22-30) mmol/L Anion Gap 15.9 H (5-15) MEQ/L BUN 15 (9-20) mg/dL Creatinine 0.96 (0.66-1.25) mg/dL Estimated GFR 94.5 ML/MIN Glucose 106 (74-106) mg/dL Calcium 9.0 (8.4-10.2) mg/dL Total Bilirubin 0.40 (0.2-1.3) mg/dL AST 40 (17-59) U/L ALT 27 (0-50) U/L Alkaline Phosphatase 80 (38-126) U/L Serum Total Protein 7.8 (6.3-8.2) g/dL Albumin 4.3 (3.5-5.0) g/dL Influenza Type A Ag POSITIVE A (NEGATIVE) Influenza Type B Ag NEGATIVE (NEGATIVE) RSV (PCR) NEGATIVE (NEGATIVE) SARS-CoV-2 (PCR) NEGATIVE (NEGATIVE) Slides for Path Review YES - Progress Progress: improved Air Movement: good Progress Note: -Overall sick but nontoxic. Presented with shortness of breath and cough. Coarse breath sounds present bilaterally. Initial chest XRay concerning for atypical pneumonia. No respiratory distress. Labs were overall unremarkable. No high risk comorbidities or features. CURB-65 and PSI low risk. Patient states they feel better after meds. Other etiologies for dyspnea such as PE, ACS, CHF, Dissection, Asthma, COPD were considered but based on exam and findings above, I think it is most likely due to uncomplicated pneumonia. Patient also found to be Flu A positive, but outside Tamiflu window. Antibiotics and steroids started here. Stable on RA. Discussed findings at length with patient. Also discussed that there is always a possibility that they may get worse regardless of our treatment decisions. They understood and stated they would like to go home with outpatient treatment and prompt PCP followup within the next 48 hours. Return precautions were extensively discussed and they understand to return for any worsening symptoms or failure to improve. Blood Culture(s) Obtained: No Antibiotics given: Yes Counseled pt/family regarding: lab results, diagnosis, need for follow-up, rad results Medical Desision Making - Diagnostic Testing Diagnostic test were ordered, analyzed, and reviewed by me: Yes Radiological Interpretation: Interpreted by me - Risk of complications The pt has a mod risk of morbidity or mortality based on: Need for prescription drug management - Departure Departure Disposition: Home Clinical Impression: Influenza A, Atypical pneumonia, Nausea and vomiting Condition: Good Critical Care Time: No Referrals: FIDEL CORTÉS MD [Primary Care Provider] - Follow up/PCP as directed Instructions: Flu, Adult ED Prescriptions: Azithromycin 250 mg PO DAILY 4 Days #4 tablet predniSONE [Prednisone] 50 mg PO DAILY #4 tablet
[2024-08-04] MEDS ORDERED: DELTASONE 20 MG ONE (14:34)
[2024-08-04] MEDS: DELTASONE 20 MG PO ONE (14:35)
[2024-08-04] MEDS ORDERED: DUONEB 0.5-3 MG/3 ml Neb IH ONE (14:35)
[2024-08-04] MEDS: ZOFRAN ODT 4 MG PO PRN (14:37)
[2024-08-04] MEDS ORDERED: ZOFRAN ODT 4 MG ONE (14:37)
[2024-08-04] MEDS: DUONEB 0.5-3 MG/3 ml Neb IH ONE (14:56)
[2024-08-04 15:14] VITALS: O2SAT 98
[2024-08-04 15:19] LABS: INFLUENZA B NEGATIVE (NEGATIVE); RESPIRATORY SYNCTIAL VIRUS NEGATIVE (NEGATIVE); SARS-CoV-2 Xpert Express NEGATIVE (NEGATIVE)
[2024-08-04 15:24] LABS: INFLUENZA A POSITIVE (NEGATIVE)
[2024-08-04 15:25] LABS: Absolute Neutrophil Ct (ANC) 11.19 x10^3/uL (1.78-5.38); BASOPHIL % 0.3 % (0.2-1.2); Basophil (Absolute #) 0.04 x10^3/uL (0.01-0.08); Eosinophil (Absolute #) 0 x10^3/uL (0.04-0.54); Hematocrit 48.2 % (40.1-51.0); Hemoglobin 17.8 g/dL (13.7-17.5); IMMATURE GRAN # 0.06 x10^3u/L (0.001-0.031); IMMATURE GRAN % 0.4 % (0.001-0.429); Lymphocyte (Absolute #) 2.09 x10^3/uL (1.32-3.57); Lymphocytes % 13.1 % (21.8-53.1); Mean Cell Volume 84.4 fL (79.0-92.2); Mean Corpuscular Hemoglobin 31.2 pg (25.7-32.2); Mean Corpuscular Hgb Concent. 36.9 g/dL (32.3-36.5); Mean Platelet Volume 9.6 fL (9.4-12.4); Monocyte (Absolute #) 2.62 x10^3/uL (0.30-0.82); Monocytes % 16.4 % (5.3-12.2); Neutrophil % 69.8 % (34.0-67.9); Platelet Count 238 x10^3/uL (163-337); Red Blood Count 5.71 x10^6/uL (4.63-6.08); Red Cell Distribution Width 12.8 % (11.6-14.4)
[2024-08-04] MEDS ORDERED: Zithromax 250 MG TABLET ONE (15:26)
[2024-08-04] MEDS ORDERED: Sodium Chloride 0.9% 1000 ML 1,000 ML ONE (15:26)
[2024-08-04] MEDS: Sodium Chloride 0.9% 1000 ML 1,000 ML IV STA (15:27)
[2024-08-04] MEDS: Zithromax 250 MG TABLET PO ONE (15:27)
[2024-08-04 15:36] LABS: ALBUMIN 4.3 g/dL (3.5-5.0); ANION GAP 15.9 MEQ/L (5-15); BILIRUBIN,TOTAL 0.4 mg/dL (0.2-1.3); Creatinine 1 0.96 mg/dL (0.66-1.25); EST GLOMERULAR FILTRATION RATE 94.5 ML/MIN; Potassium 3.1 mmol/L (3.5-5.1); Total Protein 7.8 g/dL (6.3-8.2)
[2024-08-04] MEDS ORDERED: Klor Con ONE (15:51)
[2024-08-04] MEDS: Klor Con PO ONE (15:52)
[2024-08-04 15:58] VITALS: BP 129/79; RESP 18
[2024-08-04 16:13] VITALS: PULSE 78; TEMP 98.5
--- NOTE | 2024-08-04 19:12 | XRAY ---
Indication: Cough. Short of breath. Comparison: None Portable chest demonstrates minimal left base subsegmental atelectasis/scarring. Remaining heart and lungs unremarkable. Bony thorax intact. No acute findings.
[2024-08-04 19:40] LABS: Slide Review 1 YES
== END 2024-08-04 16:21 | disposition home or self-care (01) ==
LOC: ED 13:32
DX: J10.00 Influenza due to other identified influenza virus with unspecified type of pneumonia (principal); R51.9 Headache, unspecified; R05.9 Cough, unspecified; M54.9 Dorsalgia, unspecified; R11.2 Nausea with vomiting, unspecified
CPT/HCPCS: 0241U; 36415; 71045; 80053; 85025; 94640; 99284; Q0162; A9270-GY